=== PATIENT | female | born 1955 | race Caucasian/White ===

== ENCOUNTER 2016-06-09 10:03 | Emergency (ER) | payer BC ==
[~2016-06-09] VITALS: Ht 167.6 cm; Wt 92.5 kg
[~2016-06-09 10:03] MED LIST: AMIT10 PO; BUME0.5T PO; METO25CR PO; POTA595T5 PO; RAMI5CAP36 PO
[2016-06-09 10:05] VITALS: BP 133/76; PULSE 95; RESP 15; TEMP 97.9; O2SAT 100
[2016-06-09 10:15] VITALS: BP 130/73; PULSE 88; RESP 18; O2SAT 96
[2016-06-09 10:30] VITALS: BP_SYST 128; BP_SYST 130; BP_DIAS 73; BP_DIAS 77
[2016-06-09] MEDS ORDERED: SODIUM CHLORIDE 0.9% FLUSH 10 ML FLUSH IVF PRN (10:30)
[2016-06-09] MEDS ORDERED: ASPIRIN 81 MG CHEW TAB PO ONE (10:30)
[2016-06-09] MEDS ORDERED: AMIT10TA6 PO (10:43)
[2016-06-09] MEDS ORDERED: BUME0.5T PO (10:43)
[2016-06-09] MEDS ORDERED: LORA10TA PO (10:43)
[2016-06-09] MEDS ORDERED: METO25TA6 PO (10:43)
[2016-06-09] MEDS ORDERED: RAMI5CAP PO (10:43)
[2016-06-09] MEDS ORDERED: CART120C PO (10:43)
[2016-06-09 10:56] LABS: AUTOMATED NEUTROPHIL # 3.7 TH/MM3 (1.8-7.7); BASOPHIL # 0.1 TH/MM3 (0-0.2); BASOPHIL % 0.9 % (0.0-2.0); EOSINOPHIL # 0.1 TH/MM3 (0-0.4); HEMATOCRIT 42.6 % (35.0-46.0); HEMO FLAGS DIFF FINAL; LYMPH % 31.1 % (9.0-44.0); LYMPHOCYTE # 1.9 TH/MM3 (1.0-4.8); MEAN CELL VOLUME 85.8 FL (80.0-100.0); MEAN CORPUSCULAR HEMOGLOBIN 29.4 PG (27.0-34.0); MEAN CORPUSCULAR HGB CONC 34.3 % (32.0-36.0); MONO % 6.2 % (0.0-8.0); NEUT % 59.8 % (16.0-70.0); PLATELET COUNT 259 TH/MM3 (150-450); RED BLOOD COUNT 4.97 MIL/MM3 (4.00-5.30); RED CELL DISTRIBUTION WIDTH 13.1 % (11.6-17.2); WHITE BLOOD COUNT 6.2 TH/MM3 (4.0-11.0)
[2016-06-09 11:00] VITALS: BP 117/67; PULSE 85; RESP 18; O2SAT 97
[2016-06-09 11:05] LABS: APTT (PATIENT) 25.7 SEC (24.3-30.1); INTERNATIONAL NORMALIZED RATIO 0.9 RATIO
[2016-06-09 11:15] LABS: ALT (GPT) 71 U/L (10-53); ANION GAP 9 MEQ/L (5-15); AST (GOT) 44 U/L (15-37); BICARBONATE 24.3 MEQ/L (21.0-32.0); BLOOD UREA NITROGEN 18 MG/DL (7-18); CHLORIDE 106 MEQ/L (98-107); GLOMERULAR FILTRATION RATE 59 ML/MIN (>89); MAGNESIUM 2.4 MG/DL (1.5-2.5); POTASSIUM 4.1 MEQ/L (3.5-5.1); SODIUM (NA) 139 MEQ/L (136-145)
[2016-06-09 11:19] LABS: ALKALINE PHOSPHATASE 95 U/L (45-117); TOTAL BILIRUBIN ADULT 0.6 MG/DL (0.2-1.0)
--- NOTE | 2016-06-09 11:26 | RADRPT ---
EXAM DATE/TIME: 06/09/2016 10:38 [facility] COMPARISON: CHEST SINGLE AP, March 13, 2015, 21:39. INDICATIONS : Chest pain and cough. MEDICAL HISTORY : A-fib. SURGICAL HISTORY : None. ENCOUNTER: Initial ACUITY: 2 days PAIN SCORE: 2/10 LOCATION: Bilateral chest FINDINGS: A single view of the chest demonstrates the lungs to be symmetrically aerated without evidence of mas s, infiltrate or effusion. The cardiomediastinal contours are unremarkable. Osseous structures are intact. CONCLUSION: Normal examination. Edvin Greenwood MD on June 09, 2016 at 11:24 Board Certified Radiologist. This report was verified electronically.
[2016-06-09] MEDS ORDERED: METF500T PO (12:11)
--- NOTE | 2016-06-09 12:11 | PD ---
HPI Chief Complaint: Cardiac Complaint Time Seen by Provider: 10:53 Travel History International Travel<30 days: No Contact w/Intl Traveler<30days: No Traveled to known affect area: No History of Present Illness HPI Patient is 61-year-old female with a history of hypertension and atrial fibrillation presents emergency Department with complaints of palpitations particularly on the left side of her chest. Patient states that she took her pulse and found it to be very irregular and thought she was in atrial fibrillation. She called her veneer redrier up [place] who told her to come into the emergency department to be seen and possibly converted. Patient denies any chest pain shortness of breath dyspnea on exertion or orthopnea. She states that her symptoms are gone on for 2 days and constant PFSH Past Medical History Atrial Fibrillation: Yes Heart Rhythm Problems: Yes (A-FIB) Cardiac Catheterization: No Cardiovascular Problems: Yes (afib, hypertension ) High Cholesterol: No Congestive Heart Failure: No Diabetes: No Diminished Hearing: No Hypertension: Yes Immunizations Current: Yes Tetanus Vaccination: > 5 Years Influenza Vaccination: Yes ?: Not Menopausal: Yes : 3 Para: 2 Miscarriage: 1 : 0 Tubal Ligation: Yes Past Surgical History Section: Yes Coronary Artery Bypass Graft: No Gynecologic Surgery: Yes (Bladder repair) Social History Alcohol Use: Yes ("COCKTAIL WITH DINNER SOMETIMES") Tobacco Use: No (QUIT 2013) Substance Use: No Allergies-Medications (Allergen,Severity, Reaction): Coded Allergies: Sulfa (Verified Allergy, Severe, Rash, 06/09/16) Reported Meds & Prescriptions Reported Meds & Active Scripts Active Xarelto (Rivaroxaban) 20 Mg Tab 20 Mg PO DAILY 30 Days Metformin (Metformin HCl) 500 Mg Tab 500 Mg PO BIDPC With meals Reported Cartia Xt (Diltiazem ER 24 HR) 120 Mg Caper 120 Mg PO DAILY Ramipril 5 Mg Cap 5 Mg PO BID Amitriptyline (Amitriptyline HCl) 10 Mg Tab 10 Mg PO HS Loratadine 10 Mg Tab 20 Mg PO DAILY Bumetanide 0.5 Mg Tab 0.5 Mg PO DAILY Metoprolol Succinate ER 24 HR (Metoprolol Succinate) 25 Mg Tab 25 Mg PO DAILY Review of Systems Except as stated in HPI: all other systems reviewed are Neg Physical Exam Narrative GENERAL: Well-developed well-nourished no apparent distress SKIN: Focused skin assessment warm/dry. HEAD: Atraumatic. Normocephalic. EYES: Pupils equal and round. No scleral icterus. No injection or drainage. ENT: No nasal bleeding or discharge. Mucous membranes pink and moist. NECK: Trachea midline. No JVD. CARDIOVASCULAR: Irregular irregular but with a normal rate.. No murmur appreciated. 2+ bilateral equal pulses in all 4 extremity's. RESPIRATORY: No accessory muscle use. Clear to auscultation. Breath sounds equal bilaterally. GASTROINTESTINAL: Abdomen soft, non-tender, nondistended. Hepatic and splenic margins not palpable. MUSCULOSKELETAL: No obvious deformities. No clubbing. No cyanosis. No edema. NEUROLOGICAL: Awake and alert. No obvious cranial nerve deficits. Motor grossly within normal limits. Normal speech. PSYCHIATRIC: Appropriate mood and affect; insight and judgment normal. Data Data Last Documented VS Vital Signs Date Time Temp Pulse Resp B/P Pulse Ox O2 Delivery O2 Flow Rate FiO2 06/09/16 11:00 85 18 117/67 97 Room Air 06/09/16 10:05 97.9 Orders Electrocardiogram (06/09/16 ) Electrocardiogram (06/09/16 10:24) Complete Blood Count With Diff (06/09/16 10:24) Comprehensive Metabolic Panel (06/09/16 10:24) Magnesium (Mg) (06/09/16 10:24) Prothrombin Time / Inr (Pt) (06/09/16 10:24) Act Partial Throm Time (Ptt) (06/09/16 10:24) Troponin I (06/09/16 10:24) Lipase (06/09/16 10:24) Chest, Single Ap (06/09/16 10:24) Ecg Monitoring (06/09/16 10:24) Bilateral Bp Monitoring (06/09/16 10:24) Iv Access Insert/Monitor (06/09/16 10:24) Oximetry (06/09/16 10:24) Oxygen Administration (06/09/16 10:24) Aspirin Chew (Aspirin Chew) (06/09/16 10:30) Sodium Chloride 0.9% Flush (Ns Flush) (06/09/16 10:30) Labs Laboratory Tests Test 06/09/16 10:40 White Blood Count 6.2 TH/MM3 Red Blood Count 4.97 MIL/MM3 Hemoglobin 14.6 GM/DL Hematocrit 42.6 % Mean Corpuscular Volume 85.8 FL Mean Corpuscular Hemoglobin 29.4 PG Mean Corpuscular Hemoglobin 34.3 % Concent Red Cell Distribution Width 13.1 % Platelet Count 259 TH/MM3 Mean Platelet Volume 8.4 FL Neutrophils (%) (Auto) 59.8 % Lymphocytes (%) (Auto) 31.1 % Monocytes (%) (Auto) 6.2 % Eosinophils (%) (Auto) 2.0 % Basophils (%) (Auto) 0.9 % Neutrophils # (Auto) 3.7 TH/MM3 Lymphocytes # (Auto) 1.9 TH/MM3 Monocytes # (Auto) 0.4 TH/MM3 Eosinophils # (Auto) 0.1 TH/MM3 Basophils # (Auto) 0.1 TH/MM3 CBC Comment DIFF FINAL Differential Comment Prothrombin Time 10.0 SEC Prothromb Time International 0.9 RATIO Ratio Activated Partial 25.7 SEC Thromboplast Time Sodium Level 139 MEQ/L Potassium Level 4.1 MEQ/L Chloride Level 106 MEQ/L Carbon Dioxide Level 24.3 MEQ/L Anion Gap 9 MEQ/L Blood Urea Nitrogen 18 MG/DL Creatinine 0.96 MG/DL Estimat Glomerular Filtration 59 ML/MIN Rate Random Glucose 223 MG/DL Calcium Level 9.4 MG/DL Magnesium Level 2.4 MG/DL Total Bilirubin 0.6 MG/DL Aspartate Amino Transf 44 U/L (AST/SGOT) Alanine Aminotransferase 71 U/L (ALT/SGPT) Alkaline Phosphatase 95 U/L Troponin I LESS THAN 0.02 NG/ML Total Protein 7.8 GM/DL Albumin 3.6 GM/DL Lipase 118 U/L MDM Medical Decision Making Medical Screen Exam Complete: Yes Emergency Medical Condition: Yes Interpretation(s) EKG shows atrial fibrillation an overall rate of 93, intervals otherwise within normal limits. No concerning ST T changes. This an abnormal rhythm EKG. Cardiac monitoring shows atrial fibrillation with a maximum rate of 95 on the emergency department. Differential Diagnosis Atrial fibrillation, RVR unlikely, this acute CHF unlikely, need for anticoagulation. Narrative Course Patient was roomed in emergency department, she is hemodynamically stable her rate is well-controlled. She has palpitations and no symptoms of CHF. I discussed with the patient after her workup that her blood glucose is elevated. She last ate last night prior to going to bed. This would therefore represent a true fasting sugar and diagnostic for diabetes. Patient does not have a history of diabetes but does have family history. This places her chads 2 score at 2. The patient was offered chest pain center admission for her palpitation symptoms but she declined stating that she was not having any true chest pain. She would like to follow up outpatient. The patient was then discussed with Dr. Burgess. The patient's follow with Dr. Edgar' mary in [place] before. Dr. Burgess and I are in agreement that the patient does not meet arterial for emergent cardioversion nor does she meet criteria for inpatient cardioversion. The patient does however meet criteria for anticoagulation. The patient states she's had problems with Coumadin in the past to obtain a steady INR. She has not tried Xarelto nor Eliquis in the past. I discussed Dr. Burgess recommendation to start Xarelto 20 mg by mouth daily. Also recommended that she follow up with Dr. Edgar'mary within a week. She verbalized understanding to both. I did discuss the risks benefits competitions and alternatives of Xarelto therapy with her. I included discussion about GI and internal bleeding and Dr. Burgess and my opinion that the benefits outweigh the risk of adverse reactions. She verbalized understanding accepted the medication. She will be placed on metformin for diabetes. Discussed side effects an alternative regimens. Patient is stable for discharge at this time. Diagnosis Primary Impression: Palpitations Additional Impressions: Atrial fibrillation Diabetes Med/Other Pt SpecificInfo: Prescription(s) given Scripts Rivaroxaban (Xarelto)20 Mg Tab20 Mg PO DAILY 30 Days Ref 0 Prov:Tay Mccauley MD 06/09/16 Metformin 500 Mg [id number] Mg PO BIDPC #60 TAB Ref 0 With meals Prov:Tay Mccauley MD 06/09/16 Disposition: 01 DISCHARGE HOME Condition: Stable Tay Mccauley MD Jun 09, 2016 12:11
[2016-06-09] MEDS ORDERED: XARE20TA PO (12:14)
--- NOTE | 2016-06-09 18:53 | EKG ---
Date Performed: 06/09/2016 Time Performed: 10:21:59 PTAGE: 61 years EKG: ATRIAL FIBRILLATION ABNORMAL RHYTHM ECG PREVIOUS TRACING : 03/13/2015 21.21 Compared to the previous tracing SR no longer present DOCTOR: Frances El Interpretating Date/Time 06/09/2016 18:52:26
== END 2016-06-09 13:05 | disposition home or self-care (01) ==
LOC: NEPE 10:03
DX: I48.91 Unspecified atrial fibrillation (principal); E11.9 Type 2 diabetes mellitus without complications; I10 Essential (primary) hypertension; Z79.01 Long term (current) use of anticoagulants; Z79.84 Long term (current) use of oral hypoglycemic drugs; Z79.899 Other long term (current) drug therapy; Z87.891 Personal history of nicotine dependence
CPT/HCPCS: 71010; 80053; 83690; 83735; 84484; 85025; 85610; 85730; 93005

== ENCOUNTER 2017-01-25 03:59 | Observation (INO) | payer BC ==
[2017-01-25] VITALS (9 sets, daily range): BP systolic 99–140; BP diastolic 55–68; PULSE 62–95; RESP 16–18; TEMP 98.1–98.2; O2SAT 95–99
[~2017-01-25] VITALS: Ht 175.3 cm; Wt 84.0 kg
[~2017-01-25 03:59] MED LIST changes: -AMIT10 PO; +AMIT10TA6 PO; +CART120C PO; +LORA10TA PO; +METF500T PO; +METO1TAB42 PO; -METO25CR PO; -POTA595T5 PO; +RAMI5CAP PO; -RAMI5CAP36 PO; +XARE20TA PO
[2017-01-25] MEDS ORDERED: ASPI-516 CHEW (04:11)
[2017-01-25] MEDS ORDERED: CLAR10CA3 PO (04:11)
--- NOTE | 2017-01-25 04:11 | PD ---
HPI Chief Complaint: Chest Pain Time Seen by Provider: 04:04 Travel History International Travel<30 days: No Contact w/Intl Traveler<30days: No Traveled to known affect area: No History of Present Illness HPI 61 year-old female presents to the emergency department from home by EMS transport for evaluation of retrosternal chest pain. Pain is nonradiating. Patient states pain associated with shortness of breath without nausea vomiting or sweats. Patient has history of hypertension. Patient has borderline hyperglycemia. Patient denies dyslipidemia. Patient is a tobacco. Patient states that she does have history of atrial fibrillation for which she takes as needed diltiazem; patient denies blood 10 to use besides daily aspirin. Patient is followed by radiology practitioner assistant Dr. Morelos. Patient states she was just seen in the office by her radiology practitioner assistant as a routine annual visit on . Patient was verbally told by her radiology practitioner assistant that she should undergo a nuclear stress test which was scheduled February 05. Patient reports that she's been under a lot of stress due to illness of her significant other. Patient states this morning she was awake with her significant other when she started experiencing retrosternal chest pain. Patient was given aspirin by EMS and 2 sublingual nitroglycerin with near resolution of her discomfort presently discomfort as 1-2/10 in intensity. Patient denies other concerns or complaints. PFSH Past Medical History Narrative Medical Atrial fibrillation, hypertension, hyperglycemia, tubal ligation, alcohol use tobacco use; nursing notes reviewed Atrial Fibrillation: Yes Heart Rhythm Problems: Yes (A-FIB) Cardiac Catheterization: No Cardiovascular Problems: Yes (afib, hypertension ) High Cholesterol: No Congestive Heart Failure: No Diabetes: No Diminished Hearing: No Hypertension: Yes Immunizations Current: Yes ?: Not Menopausal: Yes : 3 Para: 2 Miscarriage: 1 : 0 Tubal Ligation: Yes Past Surgical History Section: Yes Coronary Artery Bypass Graft: No Gynecologic Surgery: Yes (Bladder repair) Social History Alcohol Use: Yes ("COCKTAIL WITH DINNER SOMETIMES") Tobacco Use: No (QUIT 2013) Substance Use: No Allergies-Medications (Allergen,Severity, Reaction): Coded Allergies: Sulfa (Sulfonamide Antibiotics) (Unverified Allergy, Severe, Rash, 09/26/16 ) Reported Meds & Prescriptions Reported Meds & Active Scripts Active Reported Claritin (Loratadine) 10 Mg Cap 10 Mg PO DAILY Aspirin 81 Mg Chew 81 Mg CHEW DAILY Cartia Xt (Diltiazem ER 24 HR) 120 Mg Caper 120 Mg PO DAILY Ramipril 5 Mg Cap 5 Mg PO BID Amitriptyline (Amitriptyline HCl) 10 Mg Tab 10 Mg PO HS Bumetanide 0.5 Mg Tab 0.5 Mg PO DAILY Metoprolol Succinate ER 24 HR (Metoprolol Succinate) 25 Mg Tab 25 Mg PO DAILY Review of Systems Except as stated in HPI: all other systems reviewed are Neg General / Constitutional: No: Fever, Chills Eyes: No: Visual changes HENT: No: Headaches Cardiovascular: Positive: Chest Pain or Discomfort Respiratory: Positive: Shortness of Breath Gastrointestinal: No: Nausea Genitourinary: No: Dysuria Musculoskeletal: No: Myalgias, Arthralgias Skin: No Rash Neurologic: No: Weakness, Dizziness, Syncope, Focal Abnormalities, Coordination Problem Psychiatric: No: Anxiety Hematologic/Lymphatic: No: Lymph Node Enlargement Physical Exam Narrative GENERAL: Well developed well-nourished female in no acute distress no respiratory distress SKIN: Warm and dry. HEAD: Normocephalic. EYES: No scleral icterus. No injection or drainage. NECK: Supple, trachea midline. No JVD or lymphadenopathy. CARDIOVASCULAR: Regular rate and rhythm without murmurs, gallops, or rubs. RESPIRATORY: Breath sounds equal bilaterally. No accessory muscle use. GASTROINTESTINAL: Abdomen soft, non-tender, nondistended. MUSCULOSKELETAL: No cyanosis, or edema. Radial and dorsalis pedis pulses 2+ to palpation bilaterally. BACK: Nontender without obvious deformity. No CVA tenderness. Data Data Last Documented VS Vital Signs Date Time Temp Pulse Resp B/P (MAP) Pulse Ox O2 Delivery O2 Flow Rate FiO2 01/25/17 04:04 72 18 99 Orders Orders Electrocardiogram (01/25/17 04:04) Basic Metabolic Panel (Bmp) (01/25/17 04:04) Ckmb (Isoenzyme) Profile (01/25/17 04:04) Complete Blood Count With Diff (01/25/17 04:04) Magnesium (Mg) (01/25/17 04:04) Prothrombin Time / Inr (Pt) (01/25/17 04:04) Act Partial Throm Time (Ptt) (01/25/17 04:04) Troponin I (01/25/17 04:04) Chest, Single Ap (01/25/17 04:04) Ecg Monitoring (01/25/17 04:04) Bilateral Bp Monitoring (01/25/17 04:04) Iv Access Insert/Monitor (01/25/17 04:04) Oximetry (01/25/17 04:04) Oxygen Administration (01/25/17 04:04) Sodium Chloride 0.9% Flush (Ns Flush) (01/25/17 04:15) Nitroglycerin Sl (Nitrostat Sl) (01/25/17 04:15) Admit Order (Ed Use Only) (01/25/17 ) Household Appliance Repairer / Telemetry [email or web address] (01/25/17 05:16) Diet Npo (01/25/17 Breakfast) Activity Oob With Assistance (01/25/17 05:16) Notify Dr: Other (01/25/17 05:16) Activity Bed Rest With Brp (01/25/17 05:16) Vital Signs (Adult) Q4H (01/25/17 05:16) Cardiac Rhythm .As Directed (01/25/17 05:16) Notify Dr: Other .PRN (01/25/17 05:16) Notify Dr. Parameters (01/25/17 05:16) Resp Oxygen Nasal Cannula (01/25/17 ) Ckmb (Isoenzyme) Profile (01/25/17 07:00) Ckmb (Isoenzyme) Profile (01/25/17 10:00) Troponin I (01/25/17 07:00) Troponin I (01/25/17 10:00) Electrocardiogram (01/25/17 07:00) Electrocardiogram (01/25/17 10:00) ^ Obtain (01/25/17 05:16) Sodium Chloride 0.9% Flush (Ns Flush) (01/25/17 05:30) Sodium Chloride 0.9% Flush (Ns Flush) (01/25/17 09:00) Household Appliance Repairer / Telemetry FERNY.Q8H (01/25/17 05:16) Labs Laboratory Tests Test 01/25/17 04:00 White Blood Count 7.5 TH/MM3 Red Blood Count 4.57 MIL/MM3 Hemoglobin 14.1 GM/DL Hematocrit 40.9 % Mean Corpuscular Volume 89.5 FL Mean Corpuscular Hemoglobin 30.8 PG Mean Corpuscular Hemoglobin Concent 34.4 % Red Cell Distribution Width 12.5 % Platelet Count 245 TH/MM3 Mean Platelet Volume 8.2 FL Neutrophils (%) (Auto) 60.7 % Lymphocytes (%) (Auto) 30.3 % Monocytes (%) (Auto) 5.7 % Eosinophils (%) (Auto) 2.6 % Basophils (%) (Auto) 0.7 % Neutrophils # (Auto) 4.6 TH/MM3 Lymphocytes # (Auto) 2.3 TH/MM3 Monocytes # (Auto) 0.4 TH/MM3 Eosinophils # (Auto) 0.2 TH/MM3 Basophils # (Auto) 0.1 TH/MM3 CBC Comment DIFF FINAL Differential Comment Prothrombin Time 9.7 SEC Prothromb Time International Ratio 1.0 RATIO Activated Partial Thromboplast Time 24.7 SEC Blood Urea Nitrogen 21 MG/DL Creatinine 1.12 MG/DL Random Glucose 179 MG/DL Calcium Level 9.9 MG/DL Magnesium Level 2.4 MG/DL Sodium Level 142 MEQ/L Potassium Level 4.1 MEQ/L Chloride Level 110 MEQ/L Carbon Dioxide Level 26.4 MEQ/L Anion Gap 6 MEQ/L Estimat Glomerular Filtration Rate 50 ML/MIN Total Creatine Kinase 46 U/L Troponin I LESS THAN 0.02 NG/ML MDM Medical Decision Making Medical Screen Exam Complete: Yes Emergency Medical Condition: Yes Medical Record Reviewed: Yes Interpretation(s) EKG normal sinus rhythm rate 80 prominent T waves with nonspecific ST changes inferiorly no acute ST elevation troponin I: less than 0.02, not elevated; ck: 46, wnl Last Impressions Chest X-Ray 01/25/17 0404 Signed Impressions: Service Date/Time: Wednesday, January 25, 2017 04:20 - CONCLUSION: No acute cardiopulmonary disease identified. Zan Amado MD CBC & BMP Diagram 01/25/17 04:00 Calcium Level 9.9, Magnesium Level 2.4 Vital Signs Date Time Temp Pulse Resp B/P (MAP) Pulse Ox O2 Delivery O2 Flow Rate FiO2 01/25/17 04:04 72 18 99 Differential Diagnosis Chest pain, ACS, NC Narrative Course Patient placed on residential monitor with continuous pulse oximetry IV access obtained via EMS as best as collected and sent for resulting EKG performed which shows possible inferior ischemia no acute ST elevation; patient administered one similar nitroglycerin due to complaint of residual discomfort 1 -2/10 in intensity. Patient's risk factor profile female age 61 hypertension hyperglycemia tobacco use. @ 0500 AM patient denies any chest pain or discomfort no shortness of breath no nausea no vomiting no swaets; reports that she feels well; significant other at the bedside both aware of plan for admission Physician Communication Physician Communication plan: obs to crossing tender Diagnosis Primary Impression: Chest pain Admitting Information Admitting Physician Requests: Observation Sayra Allen MD Jan 25, 2017 04:11
[2017-01-25] MEDS ORDERED: SODIUM CHLORIDE 0.9% FLUSH 10 ML FLUSH IVF PRN (04:15)
[2017-01-25] MEDS ORDERED: NITROGLYCERIN 0.4 MG SL 25 TABS/BTL SL ONE (04:15)
[2017-01-25 04:25] LABS: AUTOMATED NEUTROPHIL # 4.6 TH/MM3 (1.8-7.7); BASOPHIL # 0.1 TH/MM3 (0-0.2); BASOPHIL % 0.7 % (0.0-2.0); EOSINOPHIL # 0.2 TH/MM3 (0-0.4); EOSINOPHIL % 2.6 % (0.0-4.0); HEMATOCRIT 40.9 % (35.0-46.0); HEMO FLAGS DIFF FINAL; LYMPH % 30.3 % (9.0-44.0); LYMPHOCYTE # 2.3 TH/MM3 (1.0-4.8); MEAN CELL VOLUME 89.5 FL (80.0-100.0); MEAN CORPUSCULAR HEMOGLOBIN 30.8 PG (27.0-34.0); MEAN CORPUSCULAR HGB CONC 34.4 % (32.0-36.0); MONO % 5.7 % (0.0-8.0); NEUT % 60.7 % (16.0-70.0); PLATELET COUNT 245 TH/MM3 (150-450); RED BLOOD COUNT 4.57 MIL/MM3 (4.00-5.30); RED CELL DISTRIBUTION WIDTH 12.5 % (11.6-17.2); WHITE BLOOD COUNT 7.5 TH/MM3 (4.0-11.0)
--- NOTE | 2017-01-25 04:29 | RADRPT ---
EXAM DATE/TIME: 01/25/2017 04:20 [facility] COMPARISON: CHEST SINGLE AP, June 09, 2016, 10:38. INDICATIONS : Midsternal chest pain MEDICAL HISTORY : A-fib SURGICAL HISTORY : None. ENCOUNTER: Initial ACUITY: 1 day PAIN SCORE: 8/10 LOCATION: Bilateral chest FINDINGS: The lungs are clear. Cardiomediastinal silhouette within normal limits. No evidence of pleural effusi on or pneumothorax. CONCLUSION: No acute cardiopulmonary disease identified. Zan Amado MD on January 25, 2017 at 4:26 Board Certified Radiologist. This report was verified electronically.
[2017-01-25 04:40] LABS: APTT (PATIENT) 24.7 SEC (24.3-30.1); PROTHROMBIN TIME - PATIENT 9.7 SEC (9.8-11.6)
[2017-01-25 04:56] LABS: ANION GAP 6 MEQ/L (5-15); BICARBONATE 26.4 MEQ/L (21.0-32.0); BLOOD UREA NITROGEN 21 MG/DL (7-18); CHLORIDE 110 MEQ/L (98-107); GLOMERULAR FILTRATION RATE 50 ML/MIN (>89); MAGNESIUM 2.4 MG/DL (1.5-2.5); POTASSIUM 4.1 MEQ/L (3.5-5.1); SODIUM (NA) 142 MEQ/L (136-145)
[2017-01-25 05:15] LABS: CREATINE KINASE 46 U/L (26-192)
[2017-01-25] MEDS ORDERED: SODIUM CHLORIDE 0.9% FLUSH 10 ML FLUSH IV FLUSH PRN (05:30)
[2017-01-25 07:45] LABS: CREATINE KINASE 37 U/L (26-192)
[2017-01-25] MEDS ORDERED: ONDANSETRON HCL 4 MG/2 ML VIAL IV PUSH PRN (07:45)
[2017-01-25] MEDS ORDERED: ACETAMINOPHEN 500 MG CPLT PO PRN (07:45)
[2017-01-25] MEDS ORDERED: NITROGLYCERIN 0.4 MG SL 25 TABS/BTL SL PRN (07:45)
--- NOTE | 2017-01-25 08:41 | EKG ---
Date Performed: 01/25/2017 Time Performed: 06:42:54 PTAGE: 61 years EKG: Sinus rhythm NORMAL ECG PREVIOUS TRACING : 06/09/2016 10.21 Since previous tracing, no significant change noted DOCTOR: Henok Chan Interpretating Date/Time 01/25/2017 08:39:50
--- NOTE | 2017-01-25 08:43 | EKG ---
Date Performed: 01/25/2017 Time Performed: 04:06:59 PTAGE: 61 years EKG: Sinus rhythm ST ELEVATION NOTED CONSISTENT WITH EARLY REPOLARIZATION ABNORMAL ECG PREVIOUS TRACING : 06/09/2016 10.21 Since previous tracing, no significant change noted DOCTOR: Henok Chan Interpretating Date/Time 01/25/2017 08:41:18
[2017-01-25] MEDS ORDERED: SODIUM CHLORIDE 0.9% FLUSH 10 ML FLUSH IV FLUSH SCH (09:00)
[2017-01-25] MEDS ORDERED: ASPIRIN 325 MG TAB PO SCH (09:00)
--- NOTE | 2017-01-25 09:24 | HHI.HP ---
HPI Primary Care Physician None-recently contacted [facility], plans on using them as PCP Chief Complaint Chest pain History of Present Illness 61 year old female with history fo hypertension, anxiety, and current smoker presents to ER for further evaluation of chest pain. Reporting a lot of current situational stress, stating her significant other has chronic pain issues. Apparently significant other pain becoming more severe, leading to his attitude becoming "unbearable." Reports intermittent chest pain varying in location and characteristic. when her stress level increases. Seen her infant room teacher Dr. Morelos yesterday to discuss chest pain. Dr. Morelos scheduled a nuclear stress test for 02/05. Came to ER for further evaluation of severe chest pain last evening. Onset 1am. Characterized "deep burning pain inside." Location left inframammary area. Duration 1.5 hour. No radiation of pain. Associated symptoms included dyspnea, headache, and legs where "shaky." Precipating factors stress around current situation with significant other. Relieving factor nitro sublingual given in ER reporting "everything calmed down quickly." Currently she is chest pain free. Appears somewhat anxious. Review of Systems General: No fatigue,weakness, fever, chills, recent illness, or change in appetite. Has been in her general state of health other than increased stress as stated above. HEENT: No HEATON, no vision changes, no nasal congestion or drainage, no dysphasia CV: As stated above. No current CP or pressure. Intermittent palpitations reported to be regular. No intermittent leg pain or dizziness. RESP: No SOB, cough, wheeze, or recent URI. Former smoker quitting over 2011 restarting smoking last month. GI: No nausea, vomiting, bowel changes, diarrhea, constipation, pain, distention , melena, or blood in the stool. No unintentional weight gain or weight loss. : No dysuria, urgency, frequency EXT: No lower leg edema, no paraesthesias MS: No discomfort or change in ROM NEURO: No difficulty with balance, LOC, motor/sensory deficits PSYCH: History of anxiety attacks. Reports current situational stress and frequent anxiety. Recently discussed with Dr. Morelos possibility of starting anxiety of depression, reports Dr. Morelos directed her to contact her PCP. She made appointment with [facility] next week. SKIN: No rashes, no concerning lesions Past Family Social History Allergies: Coded Allergies: Sulfa (Sulfonamide Antibiotics) (Unverified Allergy, Severe, Rash, 09/26/16 ) Past Medical History Paroxysmal A. fib, hypertension, panic attacks, IBS Past Surgical History Tubal ligation, , bladder repair Reported Medications Reported Meds & Active Scripts Active Reported Claritin (Loratadine) 10 Mg Cap 20 Mg PO DAILY Aspirin 81 Mg Chew 81 Mg CHEW DAILY Cartia Xt (Diltiazem ER 24 HR) 120 Mg Caper 120 Mg PO DAILY-TAKES ON NEEDED BASIS WHEN HEART RATE FEELS ELEVATED, REPORTING NOT TAKEN OFFEN) Ramipril 5 Mg Cap 5 Mg PO BID Amitriptyline (Amitriptyline HCl) 10 Mg Tab 10 Mg PO HS Bumetanide 0.5 Mg Tab 0.5 Mg PO DAILY Metoprolol Succinate ER 24 HR (Metoprolol Succinate) 25 Mg Tab 25 Mg PO DAILY Vitamin B complex daily Active Ordered Medications Current Medications Medications (Trade) Dose Ordered Sig/Tomás Route Start Time Stop Time Status Last Admin (NS Flush) 2 ml UNSCH PRN IV FLUSH 01/25/17 05:30 (NS Flush) 2 ml BID IV FLUSH 01/25/17 09:00 01/25/17 08:34 (Tylenol) 500 mg Q4H PRN PO 01/25/17 07:45 (Zofran Inj) 4 mg Q6H PRN IV PUSH 01/25/17 07:45 (Nitrostat Sl) 0.4 mg Q5M PRN SL 01/25/17 07:45 (Aspirin) 325 mg DAILY PO 01/25/17 09:00 01/25/17 08:34 Social History Known hypertension. No known coronary artery disease, diabetes, or hyperlipidemia. Former smoker quitting 2011, restarted last month smoking half pack cigarettes daily. Endorses alcohol use 2-3 times weekly consisting of 2 alcoholic drinks. Lives with her significant other. Past cardiac testing No recent cardiac testing. Physical Exam Vital Signs Vital Signs Date Time Temp Pulse Resp B/P (MAP) Pulse Ox O2 Delivery O2 Flow Rate FiO2 01/25/17 08:08 98.2 62 18 116/60 (78) 98 01/25/17 06:31 98.1 63 18 99/55 (70) 97 01/25/17 06:10 21 01/25/17 05:25 80 16 106/68 (81) 95 Room Air 01/25/17 04:04 72 18 99 Physical Exam GENERAL: Alert WN, WD, NAD, pleasant, female who is mildly anxious. HEAD: NC, AT EYES: Sclera clear, conjunctiva without injection, pupils equal and round ENT: Mucous membranes pink and moist, no nasal discharge or bleeding NECK: Supple, no masses, trachea midline CV: RRR, 2/6 systolic murmur, no rub, gallop, or JVD, S1-S2 no S3-S4. RESP: Clear lungs throughout bilateral, no crackles, wheeze, rhonchi, symmetrical chest rise, nonlabored, able to speak in full sentences ABD: Soft, NT, ND, no masses, positive bowel tones EXT: Pulses +24, no dependent edema MS: Normal tone 4 extremities, no obvious deformities, full range of motion NEURO: CN II through CN XII grossly intact, motor strength 5/5, gait WNL PSYCH: A+O 3, mildly anxious with pleasant affect, appropriate speech, insight and judgment SKIN: Normal turgor, normal texture, no lesions, no rashes Laboratory Laboratory Tests Test 01/25/17 04:00 01/25/17 06:40 White Blood Count 7.5 Red Blood Count 4.57 Hemoglobin 14.1 Hematocrit 40.9 Mean Corpuscular Volume 89.5 Mean Corpuscular Hemoglobin 30.8 Mean Corpuscular Hemoglobin Concent 34.4 Red Cell Distribution Width 12.5 Platelet Count 245 Mean Platelet Volume 8.2 Neutrophils (%) (Auto) 60.7 Lymphocytes (%) (Auto) 30.3 Monocytes (%) (Auto) 5.7 Eosinophils (%) (Auto) 2.6 Basophils (%) (Auto) 0.7 Neutrophils # (Auto) 4.6 Lymphocytes # (Auto) 2.3 Monocytes # (Auto) 0.4 Eosinophils # (Auto) 0.2 Basophils # (Auto) 0.1 CBC Comment DIFF FINAL Differential Comment Prothrombin Time 9.7 Prothromb Time International Ratio 1.0 Activated Partial Thromboplast Time 24.7 Blood Urea Nitrogen 21 Creatinine 1.12 Random Glucose 179 Calcium Level 9.9 Magnesium Level 2.4 Sodium Level 142 Potassium Level 4.1 Chloride Level 110 Carbon Dioxide Level 26.4 Anion Gap 6 Estimat Glomerular Filtration Rate 50 Total Creatine Kinase 46 37 Troponin I LESS THAN 0.02 LESS THAN 0.02 Result Diagram: 01/25/1739901/25/17399 Imaging Last Impressions Chest X-Ray 01/25/17403 Signed Impressions: Service Date/Time: Wednesday, January 25, 2017 04:20 - CONCLUSION: No acute cardiopulmonary disease identified. Zan Amado MD Course EKG Clark VTE Risk Assessment Caprini VTE Risk Assessment: No/Low Risk (score <= 1) Caprini Risk Assessment Model Point Value = 1 Point Value = 2 Point Value = 3 Point Value = 5 Age 41-60 Minor surgery BMI > 25 kg/m2 Swollen legs Varicose veins or History of unexplained or recurrent spontaneous Oral contraceptives or hormone replacement Sepsis (< 1 month) Serious lung disease, including pneumonia (< 1 month) Abnormal pulmonary function Acute myocardial infarction Congestive heart failure (< 1 month) History of inflammatory bowel disease Medical patient at bed rest Age 61-74 Arthroscopic surgery Major open surgery (> 45 min) Laparoscopic surgery (> 45 min) Malignancy Confined to bed (> 72 hours) Immobilizing plaster cast Central venous access Age >= 75 History of VTE Family history of VTE Factor V Leiden Prothrombin [id number] Lupus anticoagulant Anticardiolipin antibodies Elevated serum homocysteine Heparin-induced thrombocytopenia Other congenital or acquired thrombophilia Stroke (< 1 month) Elective arthroplasty Hip, pelvis, or leg fracture Acute spinal cord injury (< 1 month) Prophylaxis Regimen Total Risk Factor Score Risk Level Prophylaxis Regimen 0-1 Low Early ambulation 2 Moderate Order ONE of the following: *Sequential Compression Device (SCD) *Heparin 5000 units SQ BID 3-4 Higher Order ONE of the following medications: *Heparin 5000 units SQ TID *Enoxaparin/Lovenox 40 mg SQ daily (WT < 150 kg, CrCl > 30 mL/min) *Enoxaparin/Lovenox 30 mg SQ daily (WT < 150 kg, CrCl > 10-29 mL/min) *Enoxaparin/Lovenox 30 mg SQ BID (WT < 150 kg, CrCl > 30 mL/min) AND/OR *Sequential Compression Device (SCD) 5 or more Highest Order ONE of the following medications: *Heparin 5000 units SQ TID (Preferred with Epidurals) *Enoxaparin/Lovenox 40 mg SQ daily (WT < 150 kg, CrCl > 30 mL/min) *Enoxaparin/Lovenox 30 mg SQ daily (WT < 150 kg, CrCl > 10-29 mL/min) *Enoxaparin/Lovenox 30 mg SQ BID (WT < 150 kg, CrCl > 30 mL/min) AND *Sequential Compression Device (SCD) Assessment and Plan Assessment and Plan #1 Chest pain-admitted to chest pain. Rule out with 3 sets of EKGs, cardiac enzymes, and monitored overnight. Will be seen and evaluated by Dr. Brandon Austin. Discussed likelihood of completing an exercise stress testing later this afternoon. If unremarkable, plan would be to discharge later this afternoon. Keep follow up appointment with and notifying office stress testing completed while in hospital. #2 Paroxysmal afib- continue aspirin, metoprolol and ramipril. Discussed importance of taking antiarrhythmic medications as instructed. #3 Tobacco use-strongly encouraged and stressed the importance of tobacco cessation. Instructed to quit smoking. Notified by RN patient possible police involvement last evening due to significant other. Patient told RN police told patient they could arrest him, however she declined. Case management consult to provide her with information on domestic shelters and services. Patricia Tate Jan 25, 2017 09:24
[2017-01-25 10:37] LABS: CREATINE KINASE 34 U/L (26-192)
--- NOTE | 2017-01-25 18:39 | RADRPT ---
EXAM DATE/TIME: 01/25/2017 16:15 [place] COMPARISON: No previous studies available for comparison. INDICATIONS : Substernal chest pain with dyspnea. Angina Atrial fibrillation. DOSE: 25.4 mCi Tc99m Myoview at stress 8.5 mCi Tc99m Myoview at rest REST HEART RATE: 80 BPM TARGET HEART RATE: 136 BPM MAX HEART RATE: 139 BPM REST BLOOD PRESSURE: 130/72 mmHg MAX BLOOD PRESSURE: 164/90 mmHg EJECTION FRACTION: 66% MEDICAL HISTORY : Hypertension. SURGICAL HISTORY : section. Tubal ligation. ENCOUNTER: Initial ACUITY: 1 day PAIN SCALE: 5/10 LOCATION: Substernal chest TECHNIQUE: The patient underwent upright treadmill exercise in the chest pain center. Continuous ECG tracing wa s monitored during stress. Gated SPECT imaging was performed after stress, and conventional SPECT im aging was performed at rest. The examination was performed on a SPECT/CT scanner, both attenuation-c orrected and non-corrected datasets were reviewed. FINDINGS: DISTRIBUTION: The maximum perfused segment at stress is in the anterolateral wall. PERFUSION STUDY: The pattern of perfusion at stress is within normal limits. GATED STUDY: There is intact wall motion and thickening without hypokinetic or dyskinetic segments. CONCLUSION: 1. No reversibility to suggest ischemia. 2. Normal wall motion with ejection fraction 66%. RISK CATEGORY: Low (<1% Annual Mortality Rate) Ruben Burgess MD on January 25, 2017 at 18:34 Board Certified Radiologist. This report was verified electronically.
--- NOTE | 2017-01-25 18:42 | HHI.DCPOC ---
Discharge Care Plan Diagnosis: (1) Atypical chest pain (2) Tobacco abuse (3) Situational stress Goals to Promote Your Health * To prevent worsening of your condition and complications * To maintain your health at the optimal level Directions to Meet Your Goals Take your medications as prescribed Follow your dietary instruction Follow activity as directed Keep your appointments as scheduled Take your immunizations and boosters as scheduled If your symptoms worsen call your PCP, if no PCP go to Urgent Care Center or Emergency Room Smoking is Dangerous to Your Health. Avoid second hand smoke Call the 24-hour hour crisis hotline for domestic abuse at Patricia Tate Jan 25, 2017 18:42
--- NOTE | 2017-01-26 16:08 | TR ---
Date Performed: 01/25/2017 Time Performed: 16:55:13 DOCTOR: Brandon Austin DRUG LIST: CLINICAL HISTORY: REASON FOR TEST: Chest pain REASON FOR ENDING: OBSERVATION: CONCLUSION: Toney protocol completed. Stopped sec to reaching target heart rate and leg fatigue. Maximum UN=187 Target HR Achieved=87.0% Total Exercise Time=5:09. No reprod chest pain. No ectopy. Artifact intermittent and at peak. Fair exercise tolerance. Normal bp response. Recovery quick and un remarkable. Nuclear images pending. COMMENTS:
== END 2017-01-25 19:51 | disposition home or self-care (01) ==
LOC: NEPC 03:59 → NEDA 05:19 → NEPFCDU 06:04
PROVIDERS: ADMIT Internal Medicine Cardiovascular Disease; ATTEND Internal Medicine Cardiovascular Disease
DX: R07.89 Other chest pain (principal); I48.0 Paroxysmal atrial fibrillation; R06.02 Shortness of breath; R73.9 Hyperglycemia, unspecified; R94.31 Abnormal electrocardiogram [ECG] [EKG]; I20.9 Angina pectoris, unspecified; I10 Essential (primary) hypertension; F41.0 Panic disorder [episodic paroxysmal anxiety]; K58.9 Irritable bowel syndrome, unspecified; F17.200 Nicotine dependence, unspecified, uncomplicated; Z79.899 Other long term (current) drug therapy; Z79.82 Long term (current) use of aspirin
CPT/HCPCS: 71010; 78452; 80048; 82550; 83735; 84484; 85025; 85610; 85730; 93005; 93017; 99285; A9502; G0378

== ENCOUNTER 2017-07-29 15:25 | Emergency (ER) | payer BC ==
[~2017-07-29] VITALS: Ht 167.6 cm; Wt 89.0 kg
[~2017-07-29 15:25] MED LIST changes: +ASPI-516 CHEW; +CLAR10CA3 PO; -LORA10TA PO; -METF500T PO; -XARE20TA PO
[2017-07-29 15:32] VITALS: BP 127/70; PULSE 82; RESP 16; TEMP 98.3; O2SAT 96
[2017-07-29] MEDS ORDERED: KETOROLAC TROMETHAMINE 60 MG/2 ML (IM) VIAL IM ONE (16:30)
--- NOTE | 2017-07-29 16:31 | RADRPT ---
EXAM DATE: 07/29/2017 4:28 PM EDT AGE/SEX: 62 years / Female INDICATIONS: Diffuse right knee pain after bowling. CLINICAL DATA: This is the patient's initial encounter. Patient reports that signs and symptoms have been present for 1 day and indicates a pain score of 7/10. MEDICAL/SURGICAL HISTORY: . A-fib. . No pertinent history. COMPARISON: No prior exams available for comparison. FINDINGS: Osseous structures appear intact with without acute bony fracture or focal bony destruction. Mild to moderate lateral and patellofemoral compartment degenerative osteoarthritis. No significant joint eff usion. Soft tissues are unremarkable. CONCLUSION: 1. No acute fracture or dislocation. 2. Mild to moderate lateral and patellofemoral compartment degenerative osteoarthritis. Electronically signed by: Lance Carrillo MD 07/29/2017 4:30 PM EDT
--- NOTE | 2017-07-29 16:38 | RADRPT ---
EXAM DATE: 07/29/2017 4:27 PM EDT AGE/SEX: 62 years / Female INDICATIONS: Diffuse right foot pain after bowling. CLINICAL DATA: This is the patient's initial encounter. Patient reports that signs and symptoms have been present for 1 day and indicates a pain score of 7/10. MEDICAL/SURGICAL HISTORY: . A-fib. . No pertinent history. COMPARISON: No prior exams available for comparison. FINDINGS: Bony structures are intact and in normal alignment. Osseous density is normal. Soft tissues are unre markable. No radiopaque foreign bodies seen. Joint space narrowing and osteophyte formation primar julian involving the metatarsophalangeal joints. Calcaneal spurring. CONCLUSION: 1. No acute fracture or dislocation. 2. Degenerative osteoarthritis primarily involving the metatarsophalangeal joints. 3. Calcaneal spurring. Electronically signed by: Lance Carrillo MD 07/29/2017 4:36 PM EDT
--- NOTE | 2017-07-29 16:53 | PD ---
HPI Chief Complaint: Injury Time Seen by Provider: 15:52 Travel History International Travel<30 days: No Contact w/Intl Traveler<30days: No Traveled to known affect area: No History of Present Illness HPI 62-year-old female here with right knee and foot pain after she slipped while bowling last week. She reports all of her weight came down onto the right leg in an attempt not to fall. She did not fall to the ground. The knee did not make contact with the ground. She has pain within the knee and foot which is constant and nonradiating. No altered sensation or weakness of the extremity. Symptom severity is moderate. Aggravated by range of motion of the knee and weightbearing. PFSH Past Medical History Hx Anticoagulant Therapy: Yes (asa 81mg) Atrial Fibrillation: Yes Heart Rhythm Problems: Yes (A-FIB) Cardiac Catheterization: No Cardiovascular Problems: Yes (htn on meds) High Cholesterol: No Congestive Heart Failure: No Diabetes: Yes (pt states when she was in may 2016 they told her she was) Patient Takes Glucophage: No Diminished Hearing: No Hypertension: Yes Immunizations Current: Yes Tetanus Vaccination: Unknown Influenza Vaccination: Yes ?: Not Menopausal: Yes : 3 Para: 2 Miscarriage: 1 : 0 Tubal Ligation: Yes Past Surgical History Section: Yes Coronary Artery Bypass Graft: No Gynecologic Surgery: Yes (Bladder repair) Hysterectomy: Yes Social History Alcohol Use: Yes (RARE) Tobacco Use: Yes (1PPD) Substance Use: No Allergies-Medications (Allergen,Severity, Reaction): Coded Allergies: Sulfa (Sulfonamide Antibiotics) (Verified Allergy, Severe, Rash, 07/29/17) Reported Meds & Prescriptions Reported Meds & Active Scripts Active Reported Claritin (Loratadine) 10 Mg Cap 10 Mg PO DAILY Aspirin 81 Mg Chew 81 Mg CHEW DAILY Cartia Xt (Diltiazem ER 24 HR) 120 Mg Caper 120 Mg PO DAILY Ramipril 5 Mg Cap 5 Mg PO BID Amitriptyline (Amitriptyline HCl) 10 Mg Tab 10 Mg PO HS Bumetanide 0.5 Mg Tab 0.5 Mg PO DAILY Metoprolol Succinate ER 24 HR (Metoprolol Succinate) 25 Mg Tab 25 Mg PO DAILY Review of Systems Except as stated in HPI: all other systems reviewed are Neg General / Constitutional: No: Fever Eyes: No: Visual changes HENT: No: Headaches Cardiovascular: No: Chest Pain or Discomfort Respiratory: No: Shortness of Breath Gastrointestinal: No: Abdominal Pain Genitourinary: No: Dysuria Musculoskeletal: Positive: Pain (Right knee pain) Skin: No Rash Physical Exam Narrative GENERAL: Alert and well-appearing 62-year-old female SKIN: Warm and dry. HEAD: Normocephalic. Atraumatic EYES: No injection or drainage. NECK: Supple, trachea midline. No midline spine tenderness CARDIOVASCULAR: Regular rate and rhythm RESPIRATORY: Breath sounds equal bilaterally. No accessory muscle use. GASTROINTESTINAL: Abdomen soft, non-tender, nondistended. MUSCULOSKELETAL: No cyanosis, or edema. Right lower extremity: +TTP anterior aspect of the knee. No obvious deformity. Even slight motion produces pain in the anterior knee. Tenderness over the dorsal aspect of the foot. Can freely wiggle the toes. Palpable DP pulse. No tenderness of the hip or ankle. BACK: Nontender without obvious deformity. No CVA tenderness. Data Data Last Documented VS Vital Signs Date Time Temp Pulse Resp B/P (MAP) Pulse Ox O2 Delivery O2 Flow Rate FiO2 07/29/17 15:32 98.3 82 16 127/70 (89) 96 Orders Orders Knee, Complete (4vws) (07/29/17 ) Foot, Complete ([id number]) (07/29/17 ) Ketorolac Inj (Toradol Inj) (07/29/17 16:30) ^ Knee Immobilizer (07/29/17 17:06) MDM Medical Decision Making Medical Screen Exam Complete: Yes Emergency Medical Condition: Yes Differential Diagnosis Fracture, sprain/strain, contusion Narrative Course 62-year-old female here with knee and foot pain. The extremity is neurovascularly intact. X-rays negative for fracture. Knee immobilizing splint applied by technology education teacher. She was offered crutches and declined. She is to follow-up with the primary doctor for possible MRI. Diagnosis Primary Impression: Knee sprain Qualified Codes: S83.91XA - Sprain of unspecified site of right knee, initial encounter Additional Impression: Foot sprain Qualified Codes: S93.601A - Unspecified sprain of right foot, initial encounter Referrals: Primary Care Physician Additional Instructions: Medication as directed. Knee immobilizer and crutches as directed. Follow-up with your primary doctor. Ice and elevate the extremity. Scripts Diclofenac Sodium (Diclofenac Sodium DR) 75 Mg Tabdr 75 MG PO BID, #14 TAB 0 Refills Prov: Natacha Muller 07/29/17 Disposition: 01 DISCHARGE HOME Condition: Stable Natacha Muller Jul 29, 2017 16:53
[2017-07-29] MEDS ORDERED: DICL75TA PO (17:10)
[2017-07-29 17:30] VITALS: BP 120/76
== END 2017-07-29 17:32 | disposition home or self-care (01) ==
LOC: PHEFT 15:25
DX: S93.601A Unspecified sprain of right foot, initial encounter (principal); S83.91XA Sprain of unspecified site of right knee, initial encounter; I48.91 Unspecified atrial fibrillation; E11.9 Type 2 diabetes mellitus without complications; W01.0XXA Fall on same level from slipping, tripping and stumbling without subsequent striking against object, initial encounter; Y93.54 Activity, bowling; Y92.39 Other specified sports and athletic area as the place of occurrence of the external cause; Z72.0 Tobacco use; Z79.82 Long term (current) use of aspirin; Z88.2 Allergy status to sulfonamides; I10 Essential (primary) hypertension
CPT/HCPCS: 73564; 73630; 96372; 99283; J1885